=== PATIENT | male | born 1990 ===

== ENCOUNTER 2016-05-14 10:05 | Emergency (ER) | payer MEDICAID ==
[2016-05-14 10:31] VITALS: BMI 22.4
[2016-05-14 10:35] VITALS: RESP 18; O2SAT 100
[2016-05-14 11:52] LABS: RBC URINE 1 /hpf (0-3); URINE BILIRUBIN NEGATIVE (NEGATIVE); URINE BLOOD NEGATIVE (NEGATIVE); URINE COLOR Yellow (YELLOW); URINE GLUCOSE (UA) NORMAL (Normal); URINE KETONE NEGATIVE (NEGATIVE); URINE LEUKOCYTE ESTERASE NEG Leu/uL (Negative); URINE PROTEIN NEGATIVE (NEGATIVE); URINE UROBILINOGEN NORMAL mg/dL (0.2-1.0); WBC URINE < 1 /hpf (0-5)
[2016-05-14] MEDS ORDERED: Sodium Chloride 0.9% 1,000 ML IV ONE (12:57)
[2016-05-14] MEDS ORDERED: Belladonna-Phenobarbital PO STA (12:57)
[2016-05-14] MEDS ORDERED: Sodium Chloride 0.9% 1,000 ML ONE (13:05)
[2016-05-14] MEDS ORDERED: Belladonna-Phenobarbital ONE (13:14)
[2016-05-14 13:19] LABS: BASO # 0.1 K/uL (0.0-0.2); BASO % 0.9 % (0.0-2.0); EOS # 0.1 K/uL (0.0-0.7); EOS % 1.5 % (0.0-4.0); HEMATOCRIT 46.9 % (35.0-51.0); LYMPH # 1.7 K/uL (1.0-4.3); LYMPH % 20.2 % (20.0-40.0); MEAN CELL VOLUME 79.9 fL (80.0-94.0); MEAN CORPUSCULAR HEMOGLOBIN 26.1 pg (27.0-31.0); MEAN CORPUSCULAR HGB CONC 32.7 g/dL (33.0-37.0); MEAN PLATELET VOLUME 9.2 fL (7.2-11.7); MONO # 0.6 K/uL (0.0-0.8); MONO % 6.9 % (0.0-10.0); NRBC % 0.1 % (0.0-2.0); RED CELL DISTRIBUTION WIDTH 13.6 % (11.5-14.5); WHITE BLOOD COUNT 8.2 K/uL (4.8-10.8)
[2016-05-14 13:26] LABS: CHLORIDE 97 mmol/L (98-107)
[2016-05-14 13:27] LABS: POTASSIUM 3.5 mmol/L (3.6-5.2); SODIUM 141 mmol/L (132-148)
[2016-05-14 13:29] LABS: ALB/GLOB RATIO 1.6 (1.0-2.1); ALKALINE PHOSPHATASE 59 U/L (38-126); ALT/SGPT 39 U/L (21-72); AST/SGOT 27 U/L (17-59); BILIRUBIN,TOTAL 0.5 mg/dL (0.2-1.3); BLOOD UREA NITROGEN 13 mg/dL (9-20); CARBON DIOXIDE 29 mmol/L (22-30); GFR AFRICAN-AMERICAN > 60; GLUCOSE,RANDOM 78 mg/dL (75-110); TOTAL PROTEIN 7.1 g/dL (6.3-8.3)
[2016-05-14 13:30] LABS: CALCIUM 9.8 mg/dl (8.6-10.4)
--- NOTE | 2016-05-14 14:23 | C.PDOC ---
History Of Present Illness 26 y/o male presents to the ED with complains of abdominal pain, nausea, vomiting and fever. Pt reports being chronically ill for the past 10 months, pt was admitted to [facility] 10 months ago and after discharged had reaction to medication with neck and back stiffness and drooling. Pt went to [facility] and and was treated for this. Ever since, patient reports abdominal cramping and vomiting. Pt has been evaluated for same multiple times, nothing found abnormal. No GI follow up. Pain 12/07. Last episode of vomiting last night. Denies headache, chill, SOB, chest pain, diarrhea, constipation or any other complaints. Time Seen by Provider: 05/14/16 10:56 Chief Complaint (Nursing): Abdominal Pain History Per: Patient History/Exam Limitations: no limitations Onset/Duration Of Symptoms: Days Current Symptoms Are (Timing): Still Present Severity: Severe Pain Scale Rating Of: 10 Location Of Pain/Discomfort: Diffuse Quality Of Discomfort: Cramping Associated Symptoms: Nausea, Vomiting. denies: Fever, Chills, Diarrhea, Chest Pain, Constipation Exacerbating Factors: None Alleviating Factors: None Recent travel outside of the [place]: No Past Medical History Reviewed: Historical Data, Nursing Documentation, Vital Signs Vital Signs: Last Vital Signs Temp 97.9 F 05/14/16 10:30 Pulse 99 H 05/14/16 10:30 Resp 18 05/14/16 10:30 BP 106/73 05/14/16 10:30 Pulse Ox 100 05/14/16 14:27 - Medical History PMH: Anxiety, Depression, Schizophrenia - [facility] Procedures CLOSURE SKIN & SUBCUTANEOUS NEC (09/13/14) Family History: States: Unknown Family Hx - Social History Hx Tobacco Use: No Hx Alcohol Use: Yes Hx Substance Use: No - Immunization History Hx Tetanus Toxoid Vaccination: Yes Hx Influenza Vaccination: No Hx Pneumococcal Vaccination: No Review Of Systems Except As Marked, All Systems Reviewed And Found Negative. Constitutional: Negative for: Fever, Chills Cardiovascular: Negative for: Chest Pain Respiratory: Negative for: Shortness of Breath Gastrointestinal: Positive for: Nausea, Vomiting, Abdominal Pain. Negative for : Diarrhea, Constipation Neurological: Negative for: Headache Physical Exam - Physical Exam Appears: Non-toxic, No Acute Distress Skin: Warm, Dry, No Rash Head: Atraumatic, Normacephalic Oral Mucosa: Moist Neck: Normal ROM, Supple Chest: Symmetrical Cardiovascular: Rhythm Regular, No Murmur Respiratory: Normal Breath Sounds, No Rales, No Rhonchi, No Wheezing Gastrointestinal/Abdominal: Soft, No Tenderness, No Guarding, No Rebound Extremity: Normal ROM Extremity: Bilateral: Atraumatic Neurological/Psych: Oriented x3 ED Course And Treatment - Laboratory Results Result Diagrams: 05/14/16 13:14 05/14/16 13:14 O2 Sat by Pulse Oximetry: 100 (on room air) Pulse Ox Interpretation: Normal Medical Decision Making Medical Decision Making: Plan: XR abdomen, IV fluids Patient feeling much better, tolerating drinking water. Normal labs, he agrees to follow up with GI this time. Disposition Counseled Patient/Family Regarding: Diagnosis, Need For Followup, Rx Given - Disposition Referrals: [facility] [Outside] Guzman Gonzalez MD [Staff Provider] - Disposition: HOME/ ROUTINE Disposition Time: 15:46 Condition: STABLE Additional Instructions: Follow up with the clinic and with Gastroenterology. Prescriptions: Atropine/Hyoscyamine [] 1 tab PO BID #12 tab Instructions: Acute Abdominal Pain (ED) Forms: Gen Discharge Inst Azeri - POA Present On Arrival: None - Clinical Impression Clinical Impression: Abdominal pain - Scribe Statement The provider has reviewed the documentation as recorded by the Paul Durán Provider Attestation: All medical record entries made by the Arturibe were at my direction and personally dictated by me. I have reviewed the chart and agree that the record accurately reflects my personal performance of the history, physical exam, medical decision making, and the department course for this patient. I have also personally directed, reviewed, and agree with the discharge instructions and disposition.
--- NOTE | 2016-05-14 15:27 | RAD ---
HISTORY: abd pain COMPARISON: Obstructive series performed 04/04/16 FINDINGS: BOWEL: Residual oral contrast presumably due to recent outside imaging. Diverticula noted. Nonobstructive bowel gas pattern. No definite free air. BONES: No acute osseous abnormality is detected. OTHER FINDINGS: None. IMPRESSION: Nonobstructive bowel gas pattern.
[2016-05-14 16:13] VITALS: BP 128/83; PULSE 79; TEMP 97.7
== END 2016-05-14 16:11 | disposition home or self-care (01) ==
LOC: C.ER 10:05
DX: R10.84 Generalized abdominal pain (principal)

== ENCOUNTER 2016-06-06 00:53 | Emergency (ER) | payer MEDICAID ==
[2016-06-06 00:53] VITALS: BMI 22.4
[2016-06-06] MEDS ORDERED: Sodium Chloride 0.9% 1,000 ML IV ONE (01:52)
[2016-06-06] MEDS ORDERED: Sodium Chloride 0.9% 1,000 ML ONE (02:03)
[2016-06-06 02:05] LABS: BASO # 0.1 K/uL (0.0-0.2); BASO % 0.6 % (0.0-2.0); EOS # 0.1 K/uL (0.0-0.7); EOS % 1.5 % (0.0-4.0); HEMOGLOBIN 15.3 g/dL (12.0-18.0); LYMPH # 1.9 K/uL (1.0-4.3); LYMPH % 21.6 % (20.0-40.0); MEAN CELL VOLUME 80.8 fL (80.0-94.0); MEAN CORPUSCULAR HEMOGLOBIN 25.8 pg (27.0-31.0); MEAN PLATELET VOLUME 9.1 fL (7.2-11.7); MONO # 0.7 K/uL (0.0-0.8); MONO % 7.8 % (0.0-10.0); NEUT % 68.5 % (50.0-75.0); RBC 5.94 Mil/uL (4.40-5.90); RED CELL DISTRIBUTION WIDTH 13.8 % (11.5-14.5); WHITE BLOOD COUNT 8.8 K/uL (4.8-10.8)
[2016-06-06 02:25] LABS: ALBUMIN 4.3 g/dL (3.5-5.0)
[2016-06-06 02:27] LABS: GFR AFRICAN-AMERICAN > 60; GFR NON-AFRICAN AMERICAN > 60
[2016-06-06 02:28] LABS: ALB/GLOB RATIO 1.5 (1.0-2.1); ALT/SGPT 33 U/L (21-72); AST/SGOT 26 U/L (17-59); BLOOD UREA NITROGEN 18 mg/dL (9-20); CALCIUM 9.8 mg/dl (8.6-10.4); LIPASE 179 U/L (23-300)
[2016-06-06] MEDS ORDERED: Belladonna-Phenobarbital PO STA (02:29)
[2016-06-06] MEDS ORDERED: Aluminum Hydroxide/Magnesium Hydroxide Susp (30 mL) PO STA (02:29)
[2016-06-06] MEDS ORDERED: Lidocaine 2% Viscous 100 ml PO STA (02:29)
[2016-06-06] MEDS ORDERED: Belladonna-Phenobarbital ONE (02:35)
[2016-06-06] MEDS ORDERED: Aluminum Hydroxide/Magnesium Hydroxide Susp (30 mL) ONE (02:36)
--- NOTE | 2016-06-06 03:45 | C.PDOC ---
History Of Present Illness 26 year old male presents to the ED with complaints of diffuse abdominal pain for "many months." Patient has been seen in the ED multiple times for the same complaint but admits to not following up with the clinic as he is suggested to. He notes he is not talking his outpatient prescribed medicine. Patient denies any nausea, vomiting, fever, or recent travel. Chief Complaint (Nursing): Abdominal Pain History Per: Patient History/Exam Limitations: no limitations Onset/Duration Of Symptoms: Persistent Current Symptoms Are (Timing): Still Present Location Of Pain/Discomfort: Diffuse Quality Of Discomfort: "Pain" Associated Symptoms: denies: Fever, Chills, Nausea, Vomiting, Diarrhea Exacerbating Factors: denies: Cough Past Medical History Vital Signs: Last Vital Signs Temp 98.4 F 06/06/16 03:46 Pulse 89 06/06/16 03:46 Resp 20 06/06/16 03:46 BP 144/72 06/06/16 03:46 Pulse Ox 100 06/06/16 03:48 - Medical History PMH: Anxiety, Depression, Schizophrenia - [facility] Procedures CLOSURE SKIN & SUBCUTANEOUS NEC (09/13/14) Family History: States: Unknown Family Hx - Social History Hx Tobacco Use: No Hx Alcohol Use: Yes Hx Substance Use: No - Immunization History Hx Tetanus Toxoid Vaccination: Yes Hx Influenza Vaccination: No Hx Pneumococcal Vaccination: No Review Of Systems Constitutional: Negative for: Fever, Chills Respiratory: Negative for: Cough Gastrointestinal: Positive for: Abdominal Pain (diffuse abdominal pain ). Negative for: Nausea, Vomiting, Diarrhea Physical Exam - Physical Exam Appears: Non-toxic, No Acute Distress Skin: Warm, Dry Neck: Normal ROM, Supple Cardiovascular: Rhythm Regular, No Murmur Respiratory: No Accessory Muscle Use, No Rales, No Rhonchi, No Stridor, No Wheezing Gastrointestinal/Abdominal: Soft, Tenderness (mild diffuse tenderness ), No Distention, No Guarding, No Rebound Back: No CVA Tenderness Extremity: Normal ROM, No Tenderness Neurological/Psych: Oriented x3 ED Course And Treatment - Laboratory Results Result Diagrams: 06/06/16 02:02 06/06/16 02:02 O2 Sat by Pulse Oximetry: 100 Disposition - Disposition Referrals: [facility] [Outside] [facility] [Outside] Disposition: HOME/ ROUTINE Disposition Time: 03:00 Condition: IMPROVED Additional Instructions: Thank you for letting us take care of you today. Your provider was Dr. Kirby. You were treated for gastritis. The emergency medical care you received today was directed at your acute symptoms. If you were prescribed any medication, please fill it and take as directed. It may take several days for your symptoms to resolve. Return to the Emergency Department if your symptoms worsen, do not improve, or if you have any other problems. Please contact your doctor or call one of the physicians/clinics you have been referred to that are listed on the Patient Visit Information form that is included in your discharge packet. Bring any paperwork you were given at discharge with you along with any medications you are taking to your follow up visit. Our treatment cannot replace ongoing medical care by a primary care provider (PCP) outside of the emergency department. Thank you for allowing the [facility] team to be part of your care today. PLEASE FOLLOW UP WITH THE CLINIC IN 3-4 DAYS FOR OUTPATIENT CARE. Prescriptions: Omeprazole Magnesium [Prilosec Otc] 20 mg PO DAILY #20 tcp Ranitidine HCl [Zantac] 150 mg PO BID #20 tablet Instructions: Gastritis (ED) Forms: Gen Discharge Inst Kyrgyz Print Language: ROMANIAN - Clinical Impression Clinical Impression: Abdominal pain - Scribe Statement The provider has reviewed the documentation as recorded by the Scribemily Brito All medical record entries made by the Arturibemily were at my direction and personally dictated by me. I have reviewed the chart and agree that the record accurately reflects my personal performance of the history, physical exam, medical decision making, and the department course for this patient. I have also personally directed, reviewed, and agree with the discharge instructions and disposition.
[2016-06-06 03:47] VITALS: BP 144/72; PULSE 89; RESP 20; TEMP 98.4
[2016-06-06 03:48] VITALS: O2SAT 100
== END 2016-06-06 03:47 | disposition home or self-care (01) ==
LOC: C.ER 00:53
DX: R10.84 Generalized abdominal pain (principal)
CPT/HCPCS: 74176; 80053; 83690; 85025; 96361; 96374; 96375; 99284; J2405; J7040

== ENCOUNTER 2016-06-06 19:09 | Emergency (ER) | payer MEDICAID ==
[2016-06-06 19:10] VITALS: BMI 22.4
[2016-06-06] MEDS ORDERED: Aluminum Hydroxide/Magnesium Hydroxide Susp (30 mL) PO STA (19:35)
[2016-06-06] MEDS ORDERED: Belladonna-Phenobarbital PO STA (19:35)
[2016-06-06] MEDS ORDERED: Sodium Chloride 0.9% 1,000 ML IV ONE (19:35)
[2016-06-06] MEDS ORDERED: Lidocaine 2% Viscous 100 ml PO STA (19:35)
[2016-06-06] MEDS ORDERED: Aluminum Hydroxide/Magnesium Hydroxide Susp (30 mL) ONE (19:43)
[2016-06-06] MEDS ORDERED: Sodium Chloride 0.9% 1,000 ML ONE (19:43)
[2016-06-06] MEDS ORDERED: Belladonna-Phenobarbital ONE (19:44)
[2016-06-06 19:46] LABS: BASO # 0.1 K/uL (0.0-0.2); BASO % 0.7 % (0.0-2.0); EOS % 0.5 % (0.0-4.0); HEMATOCRIT 46.7 % (35.0-51.0); LYMPH # 1.3 K/uL (1.0-4.3); LYMPH % 12.6 % (20.0-40.0); MEAN CELL VOLUME 81.4 fL (80.0-94.0); MEAN CORPUSCULAR HEMOGLOBIN 25.9 pg (27.0-31.0); MEAN CORPUSCULAR HGB CONC 31.8 g/dL (33.0-37.0); MEAN PLATELET VOLUME 9.3 fL (7.2-11.7); MONO # 0.7 K/uL (0.0-0.8); MONO % 6.5 % (0.0-10.0); RED CELL DISTRIBUTION WIDTH 13.9 % (11.5-14.5); WHITE BLOOD COUNT 10.5 K/uL (4.8-10.8)
[2016-06-06 19:55] LABS: CHLORIDE 101 mmol/L (98-107); POTASSIUM 3.6 mmol/L (3.6-5.2); SODIUM 140 mmol/L (132-148)
[2016-06-06 19:57] LABS: GFR AFRICAN-AMERICAN > 60
[2016-06-06 19:58] LABS: ALB/GLOB RATIO 1.4 (1.0-2.1); ALKALINE PHOSPHATASE 59 U/L (38-126); ALT/SGPT 33 U/L (21-72); AST/SGOT 23 U/L (17-59); BILIRUBIN,TOTAL 0.2 mg/dL (0.2-1.3); BLOOD UREA NITROGEN 15 mg/dL (9-20); CALCIUM 9.1 mg/dl (8.6-10.4); CARBON DIOXIDE 26 mmol/L (22-30); GLUCOSE,RANDOM 107 mg/dL (75-110); TOTAL PROTEIN 6.7 g/dL (6.3-8.3)
--- NOTE | 2016-06-06 20:53 | C.PDOC ---
History Of Present Illness 26 year old male pt presents to the ED c/o chronic abdominal pain for the past few months. Pt was seen within the last 24 with the similar symptoms seen by me. Pt denies nausea, vomiting, diarrhea, headaches, dizziness, fever, chills, or any other complaints. Chief Complaint (Nursing): Abdominal Pain History Per: Patient Onset/Duration Of Symptoms: Days Current Symptoms Are (Timing): Still Present Severity: Mild Associated Symptoms: denies: Fever, Chills, Nausea, Vomiting, Diarrhea Recent travel outside of the [place]: No Past Medical History Reviewed: Historical Data, Nursing Documentation, Vital Signs Vital Signs: Last Vital Signs Temp 97.9 F 06/06/16 22:55 Pulse 77 06/06/16 22:55 Resp 18 06/06/16 22:55 BP 117/81 06/06/16 22:55 Pulse Ox 100 06/06/16 22:55 - Medical History PMH: Anxiety, Depression, Schizophrenia Denies: HIV, HTN, Seizures, Sexually Transmitted Disease - [facility] Procedures CLOSURE SKIN & SUBCUTANEOUS NEC (09/13/14) Family History: States: Unknown Family Hx - Social History Hx Tobacco Use: No Hx Alcohol Use: Yes Hx Substance Use: No - Immunization History Hx Tetanus Toxoid Vaccination: Yes Hx Influenza Vaccination: No Hx Pneumococcal Vaccination: No Review Of Systems Except As Marked, All Systems Reviewed And Found Negative. Constitutional: Negative for: Fever, Chills Gastrointestinal: Positive for: Abdominal Pain. Negative for: Nausea, Vomiting , Diarrhea Neurological: Negative for: Headache, Dizziness Physical Exam - Physical Exam Appears: Non-toxic, No Acute Distress Skin: Warm, Dry Head: Atraumatic, Normacephalic Eye(s): bilateral: Normal Inspection Cardiovascular: Rhythm Regular, No Murmur Respiratory: Normal Breath Sounds, No Rales, No Rhonchi, No Wheezing Gastrointestinal/Abdominal: Soft, Tenderness (Diffuse mild tenderness localized to the left side of abdomen) Neurological/Psych: Oriented x3, Normal Speech, Normal Cognition ED Course And Treatment - Laboratory Results Result Diagrams: 06/06/16 19:43 06/06/16 19:43 O2 Sat by Pulse Oximetry: 99 (Room air) Pulse Ox Interpretation: Normal Medical Decision Making Medical Decision Making: -No acute changes from last ED visit -Pt refuse to drink PO contrast Plans: -CT Abd/Pel -Atropine -IV fluids -Pepcid -Zofran -Lidocaine -Maalox -Reassess and disposition Disposition - Disposition Referrals: [facility] [Outside] [facility] [Outside] Disposition: HOME/ ROUTINE Disposition Time: 23:00 Condition: GOOD Additional Instructions: Thank you for letting us take care of you today. Your provider was Dr. Kirby. You were treated for chronic abdominal pain. The emergency medical care you received today was directed at your acute symptoms. If you were prescribed any medication, please fill it and take as directed. It may take several days for your symptoms to resolve. Return to the Emergency Department if your symptoms worsen, do not improve, or if you have any other problems. Please contact your doctor or call one of the physicians/clinics you have been referred to that are listed on the Patient Visit Information form that is included in your discharge packet. Bring any paperwork you were given at discharge with you along with any medications you are taking to your follow up visit. Our treatment cannot replace ongoing medical care by a primary care provider (PCP) outside of the emergency department. Thank you for allowing the [facility] team to be part of your care today. Fill the prescriptions I gave you yesterday and follow up in the clinic this week to be re-evaluated. Instructions: Abdominal Pain (ED) - Clinical Impression Clinical Impression: Abdominal pain - Scribe Statement The provider has reviewed the documentation as recorded by the Scribe Brynn riojas All medical record entries made by the Scribe were at my direction and personally dictated by me. I have reviewed the chart and agree that the record accurately reflects my personal performance of the history, physical exam, medical decision making, and the department course for this patient. I have also personally directed, reviewed, and agree with the discharge instructions and disposition.
[2016-06-06] MEDS ORDERED: Iohexol 240 (50 ml) ONE (21:25)
--- NOTE | 2016-06-06 22:49 | CT ---
EXAM: CT Abdomen and Pelvis Without Intravenous Contrast CLINICAL HISTORY: 26 years old, male; Pain; Abdominal pain; Generalized; Additional info: Diffuse abdominal pain, greatest on left side TECHNIQUE: Axial computed tomography images of the abdomen and pelvis without intravenous contrast. This CT exam was performed using one or more of the following dose reduction techniques: automated exposure control, adjustment of the mA and/or kV according to patient size, and/or use of iterative reconstruction technique. Coronal and sagittal reformatted images were created and reviewed. EXAM DATE/TIME: 06/06/2016 7:40 PM COMPARISON: There are no prior studies for comparison. FINDINGS: Lower thorax: Heart size is normal. Lung bases are clear ABDOMEN: Liver: unremarkable Gallbladder and bile ducts: Gallbladder is almost completely empty. Common bile duct is unremarkable. 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 Kidneys and ureters are otherwise unremarkable. Stomach and bowel: Stomach is partially distended. Rotation is normal. There is no obstruction. Terminal ileum is mildly distended. Appendix is unremarkable.Colon is incompletely distended which limits evaluation. There is scattered diverticulosis Appendix: See stomach and bowel PELVIS: Bladder: unremarkable Reproductive: Seminal vesicles and prostate are unremarkable. ABDOMEN and PELVIS: Intraperitoneal space: There is no free air.There is no free fluid. Bones/joints: There are no acute osseous abnormalities Soft tissues: There is a small fat containing umbilical hernia. Vasculature: Vascular structures are unremarkable. Lymph nodes: There is shotty mesenteric adenopathy. There are no pathologically enlarged para-aortic nodes. IMPRESSION: No acute solid visceral abnormality, no CT findings of appendicitis or diverticulitis Additional findings as described above.
[2016-06-06 22:56] VITALS: BP 117/81; PULSE 77; RESP 18; TEMP 97.9
[2016-06-06 23:08] VITALS: O2SAT 99
== END 2016-06-06 23:17 | disposition home or self-care (01) ==
LOC: C.ER 19:09
DX: R10.84 Generalized abdominal pain (principal)
CPT/HCPCS: 74176; 80053; 83690; 85025; 96361; 96374; 96375; 99284; J2405; J7040

== ENCOUNTER 2016-06-16 10:56 | Emergency (ER) | payer MEDICAID ==
[2016-06-16 10:57] VITALS: BMI 22.4
[2016-06-16 11:26] VITALS: RESP 16; O2SAT 100
[2016-06-16] MEDS ORDERED: Belladonna-Phenobarbital PO STA (11:46)
[2016-06-16] MEDS ORDERED: Aluminum Hydroxide/Magnesium Hydroxide Susp (30 mL) PO STA (11:46)
[2016-06-16] MEDS ORDERED: Belladonna-Phenobarbital ONE (11:54)
[2016-06-16] MEDS ORDERED: Aluminum Hydroxide/Magnesium Hydroxide Susp (30 mL) ONE (11:55)
--- NOTE | 2016-06-16 12:12 | C.PDOC ---
History Of Present Illness 26 y/o male presents to the ED complaining of epigastric abdominal pain for over a year. He reports that occasionally experiences headache and subjective fever. Patient reports that he has been to multiple doctors, including this ER several times and no one can tell him diagnosis and he "wants answers." Patient denies chest pain, shortness of breath, back pain, rash, urinary symptoms, or other complaints. Time Seen by Provider: 06/16/16 11:31 Chief Complaint (Nursing): Abdominal Pain History Per: Patient History/Exam Limitations: no limitations Onset/Duration Of Symptoms: Persistent (1 year) Current Symptoms Are (Timing): Still Present Location Of Pain/Discomfort: Epigastric Radiation Of Pain To:: None Recent travel outside of the [place]: No Past Medical History Reviewed: Historical Data, Nursing Documentation, Vital Signs Vital Signs: Last Vital Signs Temp 97.9 F 06/16/16 12:26 Pulse 72 06/16/16 12:26 Resp 16 06/16/16 12:26 BP 122/86 06/16/16 12:26 Pulse Ox 100 06/16/16 15:01 - Medical History PMH: Anxiety, Depression, Schizophrenia Surgical History: No Surg Hx - [facility] Procedures CLOSURE SKIN & SUBCUTANEOUS NEC (09/13/14) Family History: States: Unknown Family Hx - Social History Hx Tobacco Use: No Hx Alcohol Use: Yes Hx Substance Use: No - Immunization History Hx Tetanus Toxoid Vaccination: Yes Hx Influenza Vaccination: No Hx Pneumococcal Vaccination: No Review Of Systems Cardiovascular: Negative for: Chest Pain Respiratory: Negative for: Shortness of Breath Gastrointestinal: Positive for: Abdominal Pain (epigastric) Genitourinary: Negative for: Dysuria, Hematuria Musculoskeletal: Negative for: Back Pain Skin: Negative for: Rash Physical Exam - Physical Exam Appears: Non-toxic, No Acute Distress Skin: Normal Color, Warm, Dry Head: Atraumatic, Normacephalic Eye(s): bilateral: Normal Inspection, EOMI Oral Mucosa: Moist Neck: Normal ROM, Supple Chest: Symmetrical Cardiovascular: Rhythm Regular Respiratory: Normal Breath Sounds, No Rales, No Rhonchi, No Wheezing Gastrointestinal/Abdominal: Normal Exam, Soft, No Tenderness, No Guarding, No Rebound Back: Normal Inspection, No CVA Tenderness Extremity: Normal ROM, No Swelling Neurological/Psych: Oriented x3, Normal Speech Gait: Steady ED Course And Treatment O2 Sat by Pulse Oximetry: 100 (ra) Pulse Ox Interpretation: Normal Medical Decision Making Medical Decision Making: Impression: Epigastric abdominal pain for over year. Patient in no acute distress. Plan: * PO, Maalox PO, Pepcid PO Prior records reviewed: Patient has been to ED multiple times for similar symptoms. Patient recently seen on 06/06/16 twice in the same day for symptoms with complete workup including labs and CT. Dr Kirby had evaluated patient at that last visit and case discussed with him, he remembers patient and agrees no further testing at this time, patient has to follow up . Patient remained afebrile with stable vital signs in no acute distress. Upon reevaluation he is seated comfortably in bed talking on cellphone. I explained at length in Trinidadian, that patient needs to follow up with the clinic and see GI specialist. I explained this is chronic problem and he needs to seek care outside of the emergency department for answers. Patient states he will follow up. Disposition Counseled Patient/Family Regarding: Diagnosis, Need For Followup, Rx Given - Disposition Referrals: Branden Dykes MD [Staff Provider] - [facility] [Outside] [facility] [Outside] [facility] [Outside] [facility] [Outside] Disposition: HOME/ ROUTINE Disposition Time: 12:09 Condition: GOOD Additional Instructions: Es importante que usted siga en la clnica para la evaluacin adicional de lerner dolor abdominal crnico. Pueden ayudar a encontrar un gastroenterlogo Usted puede llamar al servicio de conserjera para cualquier ayuda [phone]. Prescriptions: Famotidine/Ca Carb/Mag Hydrox [Pepcid Complete Tablet Chew] 1 each PO DAILY #30 tab.chew Instructions: Acute Abdominal Pain (DC), Diet for Ulcers and Gastritis (ED) Print Language: RWANDAN - POA Present On Arrival: None - Clinical Impression Clinical Impression: Chronic abdominal pain, Gastritis - PA / ON AIR TALENT / Resident Statement MD/DO has reviewed & agrees with the documentation as recorded. - Scribe Statement The provider has reviewed the documentation as recorded by the Scribe (Danay Duenas) All medical record entries made by the Scribe were at my direction and personally dictated by me. I have reviewed the chart and agree that the record accurately reflects my personal performance of the history, physical exam, medical decision making, and the department course for this patient. I have also personally directed, reviewed, and agree with the discharge instructions and disposition.
[2016-06-16 12:28] VITALS: BP 122/86; PULSE 72; TEMP 97.9
== END 2016-06-16 12:29 | disposition home or self-care (01) ==
LOC: C.ER 10:56
DX: K29.70 Gastritis, unspecified, without bleeding (principal)

== ENCOUNTER 2016-07-26 16:24 | Emergency (ER) | payer MEDICAID ==
[2016-07-26 16:24] VITALS: BMI 22.4
[2016-07-26 16:57] VITALS: TEMP 98.4; O2SAT 100
--- NOTE | 2016-07-26 17:32 | C.PDOC ---
History Of Present Illness 26 y/o male presents to the ED with complaints of "headaches, body aches and not feeling well for the past year." Pt has been seen in ED 6 times over the past year with multiple negative imaging and lab studies. Pt states he has followed up outpatient but with no confirmed diagnosis. Pt is currently comfortable; denies fever, chills, vomiting, or any other complaints. Time Seen by Provider: 07/26/16 17:20 Chief Complaint (Nursing): Headache History Per: Patient History/Exam Limitations: no limitations Onset/Duration Of Symptoms: Days, Persistent Current Symptoms Are (Timing): Still Present Severity: Mild Preceeding Symptoms: None Recent travel outside of the [place]: No Past Medical History Reviewed: Historical Data, Nursing Documentation, Vital Signs Vital Signs: Last Vital Signs Temp 98.4 F 07/26/16 16:54 Pulse 85 07/26/16 17:45 Resp 17 07/26/16 17:45 BP 118/72 07/26/16 17:45 Pulse Ox 100 07/26/16 17:45 - Medical History PMH: Anxiety, Depression, Schizophrenia - [facility] Procedures CLOSURE SKIN & SUBCUTANEOUS NEC (09/13/14) Family History: States: Unknown Family Hx - Social History Hx Tobacco Use: No Hx Alcohol Use: Yes Hx Substance Use: No - Immunization History Hx Tetanus Toxoid Vaccination: Yes Hx Influenza Vaccination: No Hx Pneumococcal Vaccination: No Review Of Systems Constitutional: Positive for: Other (body aches). Negative for: Fever, Chills Gastrointestinal: Negative for: Vomiting, Diarrhea Neurological: Positive for: Headache Physical Exam - Physical Exam Appears: Non-toxic, No Acute Distress Skin: Warm, Dry, No Rash Head: Atraumatic, Normacephalic Ear(s): Bilateral: Normal Nose: Normal Oral Mucosa: Moist Neck: Normal, Normal ROM, Supple Chest: Symmetrical Cardiovascular: Rhythm Regular, No Murmur Respiratory: Normal Breath Sounds, No Rales, No Rhonchi, No Wheezing Gastrointestinal/Abdominal: Normal Exam, Soft, No Tenderness, No Guarding, No Rebound Extremity: Normal ROM Extremity: Bilateral: Atraumatic Neurological/Psych: Oriented x3, Normal Speech ED Course And Treatment O2 Sat by Pulse Oximetry: 100 (room air) Pulse Ox Interpretation: Normal Medical Decision Making Medical Decision Making: pt with chronic complaint of symptoms x 1 yr. multiple imaging studies labs unremarkable. in bed in [facility], on phone. advise outpt mangement and return precautions. Disposition - Disposition Referrals: [facility] [Outside] [facility] [Outside] Guzman Gonzalez MD [Staff Provider] - Pierce Alanis MD [Staff Provider] - Disposition: HOME/ ROUTINE Disposition Time: 06:15 Condition: GOOD Additional Instructions: please follow up with specialists. return to er with worsening symptoms or concerns. Instructions: Acute Headache (ED), Acute Abdominal Pain (ED) - Clinical Impression Clinical Impression: Chronic headache, Chronic abdominal pain - Scribe Statement The provider has reviewed the documentation as recorded by the Paul Anderson Provider Attestation: All medical record entries made by the Paul were at my direction and personally dictated by me. I have reviewed the chart and agree that the record accurately reflects my personal performance of the history, physical exam, medical decision making, and the department course for this patient. I have also personally directed, reviewed, and agree with the discharge instructions and disposition.
[2016-07-26 17:46] VITALS: BP 118/72; PULSE 85; RESP 17
== END 2016-07-26 17:47 | disposition home or self-care (01) ==
LOC: C.ER 16:24
DX: R51 Headache (principal); R10.9 Unspecified abdominal pain; G89.29 Other chronic pain